=== PATIENT | female | born 1965 | race Caucasian/White ===

== ENCOUNTER 2016-12-12 12:24 | Emergency (ER) | payer SELFPAY ==
[~2016-12-12] VITALS: Ht 175.3 cm; Wt 104.0 kg
[2016-12-12] MEDS ORDERED: HYDROCODONE/ACETAMINOPHEN 5/325MG TABLET PO ONE (16:00)
[2016-12-12] MEDS ORDERED: IBUPROFEN 800MG TABLET PO ONE (16:00)
[2016-12-12] MEDS ORDERED: NEOMYCIN-POLYMYXIN B-HYDROCORTISONE 1% OTIC SOLN 10ML LEFT EAR ONE (16:00)
[2016-12-12 16:34] VITALS: BP 135/90
[2016-12-12] MEDS ORDERED: IBUPROFEN 800MG TABLET ONE (16:37)
== END 2016-12-12 16:35 | disposition home or self-care (01) ==
LOC: ER 12:24
DX: H60.92 Unspecified otitis externa, left ear (principal); J02.9 Acute pharyngitis, unspecified; Z90.49 Acquired absence of other specified parts of digestive tract; Z90.710 Acquired absence of both cervix and uterus
CPT/HCPCS: 99284

== ENCOUNTER 2017-04-16 11:19 | Emergency (ER) | payer SELFPAY ==
[~2017-04-16] VITALS: Ht 165.1 cm; Wt 77.0 kg
[2017-04-16] MEDS ORDERED: KETOROLAC 30MG/ML VIAL IV STA (13:04)
[2017-04-16] MEDS ORDERED: FAMOTIDINE 20MG/2ML VIAL IV STA (13:04)
[2017-04-16] MEDS ORDERED: SODIUM CHLORIDE 0.9% 1,000 ML IV ONE (13:04)
[2017-04-16] MEDS ORDERED: ONDANSETRON HCL 4MG/2ML VIAL IV STA (13:04)
[2017-04-16 13:22] LABS: BASOPHILS % 0.4 % (0.0-2.0); EOSINOPHILS % 2.2 % (0.0-5.0); HEMATOCRIT. 37.6 % (36.0-48.0); HEMOGLOBIN. 12.8 g/dL (12.0-16.0); MEAN CORPUSCULAR VOLUME 87.8 fL (81.0-99.0); MEAN PLATELET VOLUME 7.1 fl (7.4-10.4); MONOCYTES % 11.4 % (2.0-8.0); PLATELET 246 x1000/uL (130-400); RED BLOOD CELL COUNT 4.28 mill/uL (4.2-5.4); RED CELL DISTRIBUTION WIDTH 13.2 % (11.6-14.6)
[2017-04-16 13:29] LABS: PROTHROMBIN TIME 10.5 sec (9.4-11.6)
[2017-04-16 13:37] LABS: CLARITY URINE HAZY (CLEAR); COLOR URINE DARK YELLOW (YELLOW); KETONES URINE NEGATIVE (NEGATIVE); LEUKOCYTE ESTERASE URINE 1+ (NEGATIVE); NITRITE URINE NEGATIVE (NEGATIVE); OCCULT BLOOD URINE TRACE (NEGATIVE); PROTEIN URINE 1+ (NEGATIVE); SPECIFIC GRAVITY URINE 1.028 (1.005-1.030); UROBILINOGEN URINE 0.2 E.U./dL (0.2-1.0)
[2017-04-16 13:42] LABS: CARBON DIOXIDE 24 mEq/L (21-32); CHLORIDE 107 mEq/L (98-107)
[2017-04-16 16:24] VITALS: BP 147/87
== END 2017-04-16 17:41 | disposition home or self-care (01) ==
LOC: ER 11:19
DX: N39.0 Urinary tract infection, site not specified (principal); R19.7 Diarrhea, unspecified
CPT/HCPCS: 36415; 76705; 80053; 81001; 81025; 83690; 85025; 85610; 96361; 96374; 96375; 99285; J1885; J2405; J3490; J7030; Z7610